=== PATIENT | male | born 1960 | race Caucasian/White ===

== ENCOUNTER → 2020-07-23 00:32 | Outpatient (CLI) | payer BC, SELFPAY ==
[2020-07-23 18:42] LABS: SARS-CoV-2 RNA PCR Negative
== END ==
PROVIDERS: PCP Internal Medicine; Visit Provider Internal Medicine Gastroenterology
DX: Z01.812 Encounter for preprocedural laboratory examination (principal); Z20.822 Contact with and (suspected) exposure to COVID-19
CPT/HCPCS: C9803; U0003; U0005

== ENCOUNTER 2020-07-26 01:42 | Day surgery (SDC) | payer BC, SELFPAY ==
[2020-07-20 15:04] VITALS: BMI 27.1
[2020-07-26 07:14] VITALS: BMI 27.6
[2020-07-26] MEDS: LACTATED RINGERS 1,000 ML 150 ML IV CONT (07:22)
--- NOTE | 2020-07-26 07:29 | WPDGICN ---
Assessment and Plan Assessment and plan (1) Family history of colon cancer in father: Code(s): Z80.0 - Family history of malignant neoplasm of digestive organs Status: Acute Assessment and Plan: Patient's father had colon cancer, his brother has had colon polyps. Plan is for screening colonoscopy now on a 5 year intervals in the future. GI Consult Note Consult date/time: 07/26/20 07:29 HPI: Elías Rosas is a 60 year old male Presents for screening colonoscopy. Patient's family history is significant that his father had colon cancer at age 66. His brother has had colon polyps. Patient states his own weight appetite bowel movements are normal. He has had colonoscopies at 5 year intervals in the past. Most recent colonoscopy was unremarkable. Patient reports that he has been told he has internal hemorrhoids. He denies abdominal pain or bleeding. Plan to proceed with screening colonoscopy. Review of Systems Review of Systems: All systems reviewed & are unremarkable except as noted in HPI and below PMFSH Social History Social History Smoking status: Never smoker Alcohol intake: current Drinks per week: 2 Substance use: never Substance use type: does not use Living arrangements: with family Spiritual care concerns: No Meds Home Medications and Allergies Home Medications Medication Instructions Recorded Confirmed Type sod picosulf 10 mg-magnes 3.5 160 ml PO BID #160 ml 07/01/20 Rx gram-citric 12 gram/160 mL oral solution aspirin [Adult Low Dose Aspirin] 81 mg PO DAILY 07/20/20 07/20/20 History rosuvastatin 10 mg PO DAILY 07/20/20 07/20/20 History Allergies Allergy/AdvReac Type Severity Reaction Status Date / Time MYCIN Allergy Unknown Unknown Uncoded 07/26/20 07:14 Exam Narrative: Exam Narrative: Physical exam reveals patient be alert. Vital signs stable. HEENT exam unremarkable. Lungs are clear to auscultation and percussion. Heart is without murmur or extra sounds. Abdominal exam bowel sounds are present soft nontender with no organomegaly. Digital external rectal exam is normal.
--- NOTE | 2020-07-26 07:39 | P.PNAN_ITS ---
Anes - Initial Pre Proc Eval Procedure: Operation Date: 07/26/20 08:15 Proposed Procedures p Screening Colonoscopy - Marquez Esparza MD Date/Time: 07/26/20 07:39 Surgeon: Marquez Esparza MD Pre Op Diagnosis: neoplasm screening, family hx of colon ca Patient Data Age: 60 Gender: M Height: 5 ft 10 in Weight: 87.3 kg Allergies Allergy/AdvReac Type Severity Reaction Status Date / Time MYCIN Allergy Unknown Unknown Uncoded 07/26/20 07:14 Home Medications Medication Instructions Recorded Confirmed Type sod picosulf 10 mg-magnes 3.5 160 ml PO BID #160 ml 07/01/20 Rx gram-citric 12 gram/160 mL oral solution aspirin [Adult Low Dose Aspirin] 81 mg PO DAILY 07/20/20 07/20/20 History rosuvastatin 10 mg PO DAILY 07/20/20 07/20/20 History Patient hx anesthesia problems: none Family hx anesthesia problems: none [facility] Past Medical History Medical History (Updated 07/26/20 @ 07:39 by Judson Dial MD) Hyperlipidemia Social History Social History Smoking status: Never smoker Alcohol intake: current Drinks per week: 2 Substance use: never Substance use type: does not use Living arrangements: with family Spiritual care concerns: No Anes - Eval Final PreProcedure Day of Procedure 07/26/20 07:39 Patient weight: normal Heart: regular rate and rhythm Lungs: clear to auscultation Airway: Mallampati scale class II Neurological: alert and oriented Last oral intake: >/= 8 hours ASA classification: II Emergent: no Anesthetic plan: proceed Anesthesia type and monitoring: general GIVS and standard monitoring Informed Consent: The patient's anesthetic plan and its attendant risks and benefits were discussed with the patient/family/POA. Questions were solicited and answers provided to the satisfaction of the patient/family/POA.
[2020-07-26 08:25] VITALS: BP 108/72; PULSE 74; RESP 16; O2SAT 93
[2020-07-26 08:35] VITALS: BP 109/72; PULSE 69; RESP 19; O2SAT 93
[2020-07-26 08:45] VITALS: BP 114/73; PULSE 64; RESP 21; O2SAT 96
== END 2020-07-26 09:05 | disposition home or self-care (01) ==
PROVIDERS: PCP Internal Medicine; Visit Provider Internal Medicine Gastroenterology
PROC: 0DJD8ZZ Inspection of Lower Intestinal Tract, Via Natural or Artificial Opening Endoscopic (ICD-10-PCS; CPT 45378; principal; 2020-07-26 08:15)
DX: Z12.11 Encounter for screening for malignant neoplasm of colon (principal); K64.8 Other hemorrhoids; Z80.0 Family history of malignant neoplasm of digestive organs; Z79.82 Long term (current) use of aspirin
CPT/HCPCS: 45378; J2704; J7120

== ENCOUNTER 2021-02-08 07:58 | Outpatient (CLI) | payer BC, SELFPAY ==
--- NOTE | 2021-02-08 08:45 | ECG_ITS ---
Measurements Intervals [place] Rate: 77 P: 68 [place]: 167 QRS: 5 QRSD: 90 T: 55 QT: 324 QTc: 369 Interpretive Statements SINUS RHYTHM INCOMPLETE RIGHT BUNDLE BRANCH BLOCK BORDERLINE R WAVE PROGRESSION, ANTERIOR LEADS BORDERLINE T WAVE ABNORMALITY- HIGH LATERAL LEADS BASELINE ARTIFACT- I, III, AVR, AVL, AVF BORDERLINE ECG Electronically Signed On 02-08-2021 9:22:37 ASSISTANT LIBRARIAN by Phillip Doyle D.O.
[2021-02-08 09:50] LABS: Basophils Percent Auto 0.5 % (0.2-1.2); Eosinophils Absolute Auto 0.1 K/mm3 (0-0.3); Eosinophils Percent Auto 1.9 % (0-4.4); Hematocrit 48.9 % (42.0-52.0); Hemoglobin 16.5 g/dL (14.0-18.0); Immature Granulocyte Absolute 0.03 K/mm3 (0.00-0.031); Immature Granulocyte Percent A 0.4 % (0-0.5); Lymphocytes Absolute Auto 1.76 K/mm3 (0.9-3.2); Lymphocytes Percent Auto 24.2 % (18.3-44.2); Mean Corpuscular HGB Conc 33.7 g/dl (32-36); Mean Corpuscular Hemoglobin 30.1 pg (26-34); Mean Corpuscular Volume 89.2 fl (80-100); Mean Platelet Volume 10.4 fl (7.4-10.4); Monocytes Absolute Auto 0.7 K/mm3 (0.1-0.6); Neutrophils Absolute Auto 4.6 K/mm3 (1.3-6.7); Platelet Count Result 283 k/mm3 (150-375); Red Blood Count 5.48 M/mm3 (4.6-6.20); Red Cell Distribution Width 11.8 % (11.5-14.5); White Blood Count 7.3 K/mm3 (4.5-10.0)
[2021-02-08 10:03] LABS: Add Urine Microscopic? NO; Appearance Urine Clear (Clear); Bilirubin Urine Negative (Negative); Blood Urine Negative (Negative); Color Urine Yellow (Yellow); Glucose Urine UA Negative (Negative); Ketones Urine Negative (Negative); Leukocyte Esterase Ur Negative LEU/UL (Negative); Nitrate Urine Negative (Negative); Protein Urine Negative (Negative); Specific Grav Ur 1.019 (1.001-1.035); Urobilinogen Urine Negative mg/dL (<2.0)
[2021-02-08 10:06] LABS: Partial Thromboplastin Time 27.1 SECONDS (22.3-36.8)
[2021-02-08 10:10] LABS: Prothrombin Time 12.9 Seconds (11.1-14.7)
[2021-02-08 10:35] LABS: Albumin Level 4.6 g/dL (3.5-5.1); Anion Gap 7 mmol/L (8-16); Blood Urea Nitrogen 17 mg/dL (9-20); Calcium 9.3 mg/dL (8.4-10.2); Carbon Dioxide 30 mmol/L (22-30); Chloride 100 mmol/L (98-107); Estimated Glomerular Filt Rate > 60; Glucose 112 mg/dL (65-110); Potassium 4.4 mmol/L (3.4-5.0); Sodium 137 mmol/L (137-145)
[2021-02-08 13:16] LABS: Urine Cotinine NEGATIVE
[2021-02-08 13:23] LABS: Hemoglobin A1C 5.7 % (<5.7)
== END 2021-02-08 07:59 | disposition home or self-care (01) ==
LOC: ANHSURGERY 08:03
PROVIDERS: PCP Internal Medicine; Visit Provider Orthopaedic Surgery
DX: Z01.818 Encounter for other preprocedural examination (principal); M17.11 Unilateral primary osteoarthritis, right knee; I45.10 Unspecified right bundle-branch block; Z51.81 Encounter for therapeutic drug level monitoring; Z79.899 Other long term (current) drug therapy
CPT/HCPCS: 80048; 80307; 81003; 82040; 83036; 85025; 85610; 85730; 87081; 93005

== ENCOUNTER 2025-02-19 08:57 | Outpatient (CLI) | payer MEDICARE, SELFPAY | END 2025-02-19 08:58 | disposition home or self-care (01) | LOC: ANHAUDIO 08:58 | PROVIDERS: PCP Family Medicine; Visit Provider Otolaryngology | DX: H61.23 Impacted cerumen, bilateral (principal) | CPT/HCPCS: 92557; 92567 ==